=== PATIENT | female | born 1975 | race Caucasian/White ===

== ENCOUNTER → 2021-02-05 | Day surgery (SDC) | payer BC ==
[~2021-02-05] MED LIST: ALLEGRA ALLERG180 MG PO; OMEPRAZOLE 20 M20 M1 PO; OMEPRAZOLE40 MG PO; ROXICODONE5 MG PO; TYLENOL EXTRA500 MG PO; ZYRTEC10 M5 PO
--- NOTE | 2021-02-05 15:37 | EKG ---
[place] [address] ELECTROCARDIOGRAM REPORT Name: BERTO RIVERA Room: [facility]#: [id number] Admission: 02/05/21 Attend Phys: Leticia Mathias, Discharge: Date of : 73 Date of Service: 02/05/21925 Report #: [id number] THIS REPORT FOR: //name// [facility] Test Date: 2021-02-05 Test Time: 09:26:40 Pat Name: BERTO RIVERA Department: Room: Gender: F Oral And Maxillofacial Surgeon: GA : 1975 Requested By: Talha Montalvo Order Number: [id number] Martha MD: Artie Fragoso Measurements Intervals [place] Rate: 61 P: 33 CO: 169 QRS: 71 QRSD: 97 T: 55 QT: 412 QTc: 415 Interpretive Statements Sinus rhythm Possible anteroseptal infarct, age indeterminate Baseline wander in lead(s) V3 No previous ECG available for comparison Electronically Signed On 02-05-2021 15:37:43 CDT by Artie Fragoso [email or web address] <ELECTRONICALLY SIGNED> By: Artie Fraogso MD, [facility] 02/05/21 1537 Artie Fragoso MD, [facility] /EPI
--- NOTE | 2021-02-07 18:06 | PATH ---
[address] [address] PATHOLOGY RPT PROCEDURE Name: BERTO RIVERA Room: [facility]#: [id number] Admission: 02/05/21 Date of : 73 Discharge: Report #: [id number] Path Case #: [id number] [facility] Accession Number: [id number] . 01 Material submitted: . gallbladder - GALLBLADDER . 01 Clinical history: . LAPAROSCOPIC CHOLECYSTECTOMY BILIARY DYSKINESIA . 02 Diagnosis: Gallbladder: - Chronic cholecystitis. (MISTY:chiara; 02/07/2021) [facility] 02/07/2021 [facility] Local . 02 Electronically signed: . Kevin Hong MD, Pathologist NPI- [id number] . 01 Gross description: . Fixative: Formalin Labeled: Gallbladder Specimen received: Intact gallbladder Dimensions: 9.0 x 3.5 x 3.0 cm Serosa: Dark green bile-stained Lymph node: Not present Mucosa: Velvety dark green bile-stained Average wall thickness: 0.1-0.2 cm Calculi: Not present Abnormalities: No grossly apparent lesions A1- Carbon Brusher Assembler body, fundus, and the cystic duct margin. (J; 02/06/2021) [facility] 02/07/2021 1500 Local . 02 Pathologist provided ICD-10: K81.1 . 02 CPT . 518655 Specimen Comment: A courtesy copy of this report has been sent to [phone] Specimen Comment: [phone] Specimen Comment: Report sent to / DR GALEAS Performed at: [address], [place] [id number] [address] [address] PATHOLOGY RPT PROCEDURE Name: BERTO RIVERA Room: [facility]#: [id number] Admission: 02/05/21 Date of : 73 Discharge: Report #: [id number] Path Case #: [id number] MD Sky Alberto MD Phone: [phone] Performed at: 02 [facility] [address] [place], [place] [id number] MD Kevin Hong MD Phone: [phone]
--- NOTE | 2021-02-13 14:06 | OP ---
[address] [address] OPERATIVE REPORT Name: BERTO RIVERA Room: [facility]#: [id number] Admission: 02/05/21 Attend Phys: Leticia Mathias DO Discharge: Date of : 73 Report #: [id number] THIS REPORT FOR: cc: FAM - No family physician/PCP FAM - No family physician/PCP Leticia Mathias DO ~ DOC #: [id number] cc: DO Juana Toth DO DATE OF SURGERY: 02/05/2021 PREOPERATIVE DIAGNOSIS: Biliary dyskinesia. POSTOPERATIVE DIAGNOSIS: Biliary dyskinesia. PROCEDURE PERFORMED: Laparoscopic cholecystectomy. PRIMARY SURGEON: Leticia Mathias DO WATERSHED PROGRAM MANAGER: Juana Rust DO, PGY3. ANESTHESIA: General and local and TAP block. ESTIMATED BLOOD LOSS: 3 mL. SPECIMEN: Gallbladder. OPERATIVE FINDINGS: Distended gallbladder. Adhesions in the right upper quadrant over the colon. COMPLICATIONS: None. INDICATIONS FOR THE PROCEDURE: The patient is a 45-year-old female that was sent to us by the GI nurse practitioner here in [place] with continued complaints of lower abdominal pain. She subsequently underwent a workup which did include a HIDA scan which showed an elevated ejection fraction at 93%. It was recommended that she undergo a laparoscopic cholecystectomy. The procedure, risks, benefits, possible complications to include bleeding, infection, injury to surrounding structures, need for additional surgery, need for open procedure, bile leak, injury to the bile duct, risks of anesthesia, and other risks of surgery were discussed with the patient in great detail. She voiced complete understanding and wished to proceed with surgery. DESCRIPTION OF PROCEDURE: Informed consent was obtained, the patient was taken to the operating room and placed supine [place] [address] OPERATIVE REPORT Name: BERTO RIVERA Room: [facility]#: [id number] Admission: 02/05/21 Attend Phys: Leticia Mathias DO Discharge: Date of : 73 Report #: [id number] endotracheal anesthesia was induced without difficulty. SCDs were placed on bilateral lower extremities. Preoperative antibiotics were given. A TAP block was performed. The right arm was tucked at the patient's side with all pressure points padded. The abdomen was prepped and draped in the standard sterile fashion. A timeout was performed to ensure correct patient, procedure, approximately 10 mL of 0.5% Marcaine were injected in the infraumbilical region in the area of our planned incision. An infraumbilical horizontal 3 cm incision was made using a 11 blade scalpel. The incision was carried down through the subcutaneous tissue using electrocautery. S retractors were used to dissect further down to the level of the fascia. Fascia was grasped between 2 Kochers and elevated. The fascia was incised using electrocautery. The peritoneum was bluntly entered using a hemostat. A finger sweep was performed to ensure there were no delicia-incisional adhesions. 0 Vicryl stay sutures were placed on either side of the fascial opening. A 12 mm Sesar trocar was inserted through the fascial opening and the abdomen was insufflated without difficulty. Laparoscopic camera was inserted. A sweep of the anterior abdominal contents was performed. There were several adhesions in the right upper quadrant over the colon. A subxiphoid 5 mm trocar was inserted under direct visualization. The patient was placed in the reverse Trendelenburg position with the left side down. An additional right upper quadrant 5 mm trocar was inserted under direct visualization. Laparoscopic scissors were then inserted and the thin filmy adhesions in the right upper quadrant were taken down using laparoscopic scissors. Once this was done, an additional right upper quadrant 5 mm trocar was inserted under direct visualization. The assistant grocery grasped the fundus of the gallbladder and retracted it superiorly and anteriorly. The gallbladder did appear to be quite distended. Newton's pouch was grasped and the peritoneum overlying Newton's pouch was scored with electrocautery. A combination of electrocautery and blunt dissection were used to open up the peritoneum along the lateral aspect of the gallbladder. Once this was done, the same technique was employed to open up the peritoneum along the medial aspect of the gallbladder. A [place] dissector was used to bluntly dissect the cystic duct and cystic artery freed from all surrounding tissues. The cystic artery was identified in the expected position just posterior to the cystic duct. Once both the cystic duct and cystic artery were freed from all surrounding tissues, a critical view of safety was obtained. There were two and only two structures seen coursing into the gallbladder and the hepatic plate was visualized. The 5 mm clip a and p technician was used to doubly clip both the duct and artery. The duct and artery were then ligated using laparoscopic scissors. The gallbladder was removed from the liver bed using electrocautery. Once the gallbladder was completely removed from the liver bed, it was placed within an EndoCatch bag. The liver edge was elevated and the liver bed was reinspected. Hemostasis was achieved using electrocautery. The clips were reinspected. They appeared to be in good position with no leak. Liver edge was let down. The patient was flattened out. The subxiphoid and right upper quadrant 5 mm trocars were removed under direct visualization. The abdomen was desufflated and the 12 mm [facility] [address] [place] [address] OPERATIVE REPORT Name: NICOLEBERTO Alex Room: [facility].#: [id number] Admission: 02/05/21 Attend Phys: Leticia Mathias DO Discharge: Date of : 73 Report #: [id number] Sesar trocar as well as the gallbladder and the EndoCatch bag were removed. The previously placed stay sutures were grasped and elevated. The fascia was grasped between 2 Kochers. Stay sutures were removed. Fascia was closed using 0 Vicryl suture in a oxxgqn-cu-gycvw fashion. The skin was closed using 4-0 Monocryl suture in a running subcuticular fashion. The 5 mm trocar sites were closed using 4-0 Monocryl suture in a simple interrupted inverted fashion. Appended Serger - Dictated on 02/08/2021 10:14:34 PM ADDENDUM Approximately 30 mL of 0.5% Marcaine used for local anesthesia. The skin was cleansed and dried. Dermabond was applied to each incision. The patient tolerated the procedure very well. She was allowed to awaken in the operating room and she was transferred to the PACU in stable condition with plans to discharge home later today. Juana Rust DO <ELECTRONICALLY SIGNED> By: Leticia Mathias DO 02/13/21 1406 0800 [id number] Mathias DO /nt
--- NOTE | 2021-02-18 11:15 | OP ---
[address] [address] OPERATIVE REPORT Name: BERTO RIVERA Room: [facility]#: [id number] Admission: 02/05/21 Attend Phys: Leticia Mathias DO Discharge: Date of : 73 Report #: [id number] THIS REPORT FOR: cc: FAM - No family physician/PCP FAM - No family physician/PCP Leticia Mathias DO ~ DOC #: [id number] cc: Leticia Mathias DO Dictated by Juana Rust DO DATE OF SURGERY: 02/05/2021 PREOPERATIVE DIAGNOSIS: Biliary dyskinesia. POSTOPERATIVE DIAGNOSIS: Biliary dyskinesia. PROCEDURE PERFORMED: Laparoscopic cholecystectomy. PRIMARY SURGEON: Leticia Mathias DO SLEEVE TURNER: Juana Rust DO, PGY3. ANESTHESIA: General and local and TAP block. ESTIMATED BLOOD LOSS: 3 mL. SPECIMEN: Gallbladder. OPERATIVE FINDINGS: Distended gallbladder. Adhesions in the right upper quadrant over the colon. COMPLICATIONS: None. INDICATIONS FOR THE PROCEDURE: The patient is a 45-year-old female that was sent to us by the GI nurse practitioner here in [place] with continued complaints of lower abdominal pain. She subsequently underwent a workup which did include a HIDA scan which showed an elevated ejection fraction at 93%. It was recommended that she undergo a laparoscopic cholecystectomy. The procedure, risks, benefits, possible complications to include bleeding, infection, injury to surrounding structures, need for additional surgery, need for open procedure, bile leak, injury to the bile duct, risks of anesthesia, and other risks of surgery were discussed with the patient in great detail. She voiced complete understanding and wished to proceed with surgery. DESCRIPTION OF PROCEDURE: Informed consent was obtained, the patient was taken to the operating room and placed supine [place] [address] OPERATIVE REPORT Name: BERTO RIVERA Room: [facility]#: [id number] Admission: 02/05/21 Attend Phys: Leticia Mathias DO Discharge: Date of : 73 Report #: [id number] endotracheal anesthesia was induced without difficulty. SCDs were placed on bilateral lower extremities. Preoperative antibiotics were given. A TAP block was performed. The right arm was tucked at the patient's side with all pressure points padded. The abdomen was prepped and draped in the standard sterile fashion. A timeout was performed to ensure correct patient, procedure, approximately 10 mL of 0.5% Marcaine were injected in the infraumbilical region in the area of our planned incision. An infraumbilical horizontal 3 cm incision was made using a 11 blade scalpel. The incision was carried down through the subcutaneous tissue using electrocautery. S retractors were used to dissect further down to the level of the fascia. Fascia was grasped between 2 Kochers and elevated. The fascia was incised using electrocautery. The peritoneum was bluntly entered using a hemostat. A finger sweep was performed to ensure there were no delicia-incisional adhesions. 0 Vicryl stay sutures were placed on either side of the fascial opening. A 12 mm Sesar trocar was inserted through the fascial opening and the abdomen was insufflated without difficulty. Laparoscopic camera was inserted. A sweep of the anterior abdominal contents was performed. There were several adhesions in the right upper quadrant over the colon. A subxiphoid 5 mm trocar was inserted under direct visualization. The patient was placed in the reverse Trendelenburg position with the left side down. An additional right upper quadrant 5 mm trocar was inserted under direct visualization. Laparoscopic scissors were then inserted and the thin filmy adhesions in the right upper quadrant were taken down using laparoscopic scissors. Once this was done, an additional right upper quadrant 5 mm trocar was inserted under direct visualization. The assistant professor sculpture grasped the fundus of the gallbladder and retracted it superiorly and anteriorly. The gallbladder did appear to be quite distended. Newton's pouch was grasped and the peritoneum overlying Newton's pouch was scored with electrocautery. A combination of electrocautery and blunt dissection were used to open up the peritoneum along the lateral aspect of the gallbladder. Once this was done, the same technique was employed to open up the peritoneum along the medial aspect of the gallbladder. A [place] dissector was used to bluntly dissect the cystic duct and cystic artery freed from all surrounding tissues. The cystic artery was identified in the expected position just posterior to the cystic duct. Once both the cystic duct and cystic artery were freed from all surrounding tissues, a critical view of safety was obtained. There were two and only two structures seen coursing into the gallbladder and the hepatic plate was visualized. The 5 mm clip fisheries officer was used to doubly clip both the duct and artery. The duct and artery were then ligated using laparoscopic scissors. The gallbladder was removed from the liver bed using electrocautery. Once the gallbladder was completely removed from the liver bed, it was placed within an EndoCatch bag. The liver edge was elevated and the liver bed was reinspected. Hemostasis was achieved using electrocautery. The clips were reinspected. They appeared to be in good position with no leak. Liver edge was let down. The patient was flattened out. The subxiphoid and right upper quadrant 5 mm trocars were removed under direct visualization. The abdomen was desufflated and the [address] [address] OPERATIVE REPORT Name: BERTO RIVERA Room: [facility].#: [id number] Admission: 02/05/21 Attend Phys: Leticia Mathias DO Discharge: Date of : 73 Report #: [id number] Sesar trocar as well as the gallbladder and the EndoCatch bag were removed. The previously placed stay sutures were grasped and elevated. The fascia was grasped between 2 Kochers. Stay sutures were removed. Fascia was closed using 0 Vicryl suture in a sphgvr-bz-zfgny fashion. The skin was closed using 4-0 Monocryl suture in a running subcuticular fashion. The 5 mm trocar sites were closed using 4-0 Monocryl suture in a simple interrupted inverted fashion. Approximately 30 mL of 0.5% Marcaine DICTATION ENDS HERE Leticia Mathias DO SS/GAU Appended Route Service Manager - Dictated on 02/08/2021 10:14:34 PM ADDENDUM Approximately 30 mL of 0.5% Marcaine used for local anesthesia. The skin was cleansed and dried. Dermabond was applied to each incision. The patient tolerated the procedure very well. She was allowed to awaken in the operating room and she was transferred to the PACU in stable condition with plans to discharge home later today. Juana Rust DO <ELECTRONICALLY SIGNED> By: Leticia Mathias DO 02/19/21 1038 [id number] Mathias DO /nt
== END | disposition home or self-care (01) ==
LOC: EDSTATUS 02-02 11:19 → M.LAB 02-02 16:30 → M.SUR 06:03
PROVIDERS: ATTEND Surgery
DX: K81.1 Chronic cholecystitis (principal); R10.11 Right upper quadrant pain; K66.0 Peritoneal adhesions (postprocedural) (postinfection); Z98.890 Other specified postprocedural states; Z79.899 Other long term (current) drug therapy; Z20.822 Contact with and (suspected) exposure to COVID-19; Z88.0 Allergy status to penicillin